=== PATIENT | male | born 1950 | race Caucasian/White ===

== ENCOUNTER → 2019-07-19 09:09 | Day surgery (SDC) | payer MEDICARE ==
[~2019-07-19 09:09] MED LIST: Buffered Lidocaine 1% SYRIN* 1 ML/SYRINGE INTRADERM ONE; Cisatracurium* 2 MG/ML MDV 5 ML ONE; Dexamethasone IV* 4 MG/ML 1 ML (4 MG) ONE; Famotidine IV* 10 MG/ML 2 ML (20 mg) IV ONE; Famotidine IV* 10 MG/ML 2 ML (20 mg) ONE; Lactated Ringers 1000 ML Bag* 1,000 ML IV SCH; Lidocaine 2% PF * 5 ML VIAL ONE; Midazolam* 1 MG/ML 5 ML VIAL (5 MG) ONE; Naloxone* 0.4 MG/ML 1 ML VIAL IV PRN; Ondansetron INJ* 2 MG/ML VIAL IV PRN; Ondansetron INJ* 2 MG/ML VIAL ONE; Oxymetazoline 0.05% NASAL SPR* 15 ML BTL ONE; Propofol* 10 MG/ML 20 ML BTL ONE; Triamcinolone Acetonide* 40 MG/ML 1 ML VIAL ONE; fentaNYL* 50 MCG/ML 2 ML VIAL (100 MCG VIAL) ONE; oxyCODONE/Acetamin 5/325 MG* TAB ONE
[2019-07-19] MEDS: fentaNYL* 50 MCG/ML 2 ML VIAL (100 MCG VIAL) IV PRN ×2 (16:16→16:33)
[2019-07-19] MEDS: oxyCODONE/Acetamin 5/325 MG* TAB PO PRN ×2 (16:53→17:21)
[2019-07-19 17:42] VITALS: BP 161/78
--- NOTE | 2019-07-19 22:18 | OP ---
DATE OF OPERATION: 07/19/19 - [facility] DATE OF : 54 SURGEON: Dr. Samano. PRE-OP DIAGNOSES: Oroantral fistula, chronic sinusitis. POST-OP DIAGNOSES: Oroantral fistula, chronic sinusitis. OPERATIVE PROCEDURE: Bilateral video endoscopic maxillary antrostomy, bilateral anterior and posterior ethmoidectomy, and local rotational palatal flap for closure of oroantral fistula. BRIEF HISTORY: This is a 69-year-old gentleman with a persistently purulent discharge from a previously dental extraction with chronic symptoms of sinusitis. CT scan shows extensive pansinusitis involving the maxillary bilaterally and anterior and posterior ethmoids. He had been having longstanding history of sinus problems as well. DESCRIPTION OF PROCEDURE: The patient was taken to the operating room. The patient was intubated. Nose was decongested with Afrin pledgets. 0 degree telescope, 30 degree telescope, and other endoscopic sinus surgery instruments including microshaver were utilized. We turned our attention initially to left side. Copious hyperplastic mucosa of the uncinate and ethmoid region was identified, infiltrated with lidocaine with epinephrine. The uncinate process was then peeled off anteriorly. Microshaver was used to remove it completely. Ethmoidectomy was then carried out removing the ethmoid bulla, coursing through the ethmoid cells posteriorly through the ground lamella towards the skull base and working superiorly into the nasofrontal duct area and laterally to the lamina papyracea. Once adequate resection was carried out, an antrostomy was widely opened. The area was packed between the middle turbinate and lateral nasal wall with Surgifoam soaked in Kenalog. Next, we turned our attention to the right side. Again, hyperplastic mucosa and polyps were identified. These were microshaved away. Uncinate process was then removed and micro-shaved away. The antrostomy was then enlarged. Resection of the ethmoid bulla was carried out in similar fashion as on the opposite side with resecting the ethmoid bulla, coursing through the ground lamella posteriorly along the skull base into the nasofrontal duct and laterally towards the lamina papyracea. Packing again was carried out. We turned our attention to the oral cavity. The oroantral fistula was identified, was carried out and the fistula was resected. I fashioned a flap based on the buccal mucosa and the palatal mucosa and advanced it cover over the fistula tract. Once this was done, the suturing was carried out with 4 -0 Vicryl. Once hemostasis obtained, the patient awakened, sent to recovery room in stable condition. Instrument and sponge counts were correct. Blood loss minimal. [id number]/[facility] #: [id number] [facility]
== END | disposition home or self-care (01) ==
LOC: OR 09:09
PROVIDERS: ATTEND Otolaryngology
DX: J32.8 Other chronic sinusitis (principal); M25.18 Fistula, other specified site; I10 Essential (primary) hypertension; I65.29 Occlusion and stenosis of unspecified carotid artery; Z79.01 Long term (current) use of anticoagulants; E03.9 Hypothyroidism, unspecified; Z88.0 Allergy status to penicillin
CPT/HCPCS: 88305; A9270-GY; J1100; J2250; J2405; J2704; J3010; J3301